=== PATIENT | male | born 1965 | race African-American/Black ===

== ENCOUNTER 2019-03-03 12:17 | Emergency (ER) | payer OTHER ==
[2019-03-03 12:25] VITALS: BMI 31.4
[2019-03-03] MEDS ORDERED: ACETAMINOPHEN 325 MG TABLET (FP) PO ONE (12:37)
[2019-03-03] MEDS ORDERED: IBUPROFEN 400 MG TABLET (FP) PO ONE ×2 (12:37→12:43)
--- NOTE | 2019-03-03 12:40 | PDOC ---
History of Present Illness - General Chief Complaint: Respiratory Stated Complaint: FEVER/ COLD CHILLS/HEADACHE Time Seen by Provider: 03/03/19 12:27 History Source: Patient Exam Limitations: No Limitations - History of Present Illness Is this a multiple visit Asthma Patient?: No Associated Symptoms: reports: cough, fever/chills, headache, muscle aches. denies: dizziness, earache, facial pain, lightheadedness, nasal congestion, nasal drainage, shortness of breath, sinus infection, sore throat, wheezing Past History - Travel Traveled outside of the country in the last 30 days: No Close contact w/someone who was outside of country & ill: No - Past Medical History Allergies/Adverse Reactions: Allergies Allergy/AdvReac Type Severity Reaction Status Date / Time No Known Allergies Allergy Verified 03/03/19 12:24 Home Medications: Ambulatory Orders NK [No Known Home Medication] 03/03/19 COPD: No - Immunization History Td Vaccination: No - Psycho Social/Smoking Cessation Hx Smoking Status: No Smoking History: Never smoked Number of Cigarettes Smoked Daily: 0 Review of Systems - Review of Systems Is the patient limited Salvadorean proficient: No Constitutional: Yes: Chills, Fever Respiratory: Yes: Cough. No: Shortness of Breath, Wheezing, Productive cough Cardiac (ROS): No: Chest Pain, Palpitations ABD/GI: No: Diarrhea, Nausea, Vomiting : Yes: Dysuria Musculoskeletal: Yes: Muscle Pain. No: Back Pain, Gout, Joint Pain, Muscle Weakness, Neck Pain Neurological: Yes: Headache. No: Paresthesia, Tingling, Weakness, Dizziness *Physical Exam - Vital Signs Last Vital Signs Temp Pulse Resp BP Pulse Ox 101.7 F H 113 H 18 115/82 97 03/03/19 12:22 03/03/19 12:22 03/03/19 12:22 03/03/19 12:22 03/03/19 12:22 - Physical Exam General Appearance: Yes: Nourished HEENT: positive: EOMI, GRACIELA, TMs Normal, Pharynx Normal Respiratory/Chest: positive: Lungs Clear, Normal Breath Sounds Cardiovascular: positive: Regular Rhythm, Regular Rate, S1, S2 Gastrointestinal/Abdominal: positive: Normal Bowel Sounds Extremity: positive: Normal Capillary Refill, Normal Inspection Integumentary: positive: Normal Color Neurologic: positive: medical language specialist II-XII NML intact, Fully Oriented, Alert, Normal Mood/ Affect, Normal Response, Motor Strength 06/24 ED Treatment Course - LABORATORY CBC & Chemistry Diagram: 03/03/19 14:17 - RADIOLOGY Radiology Studies Ordered: Category Date Time Status CHEST PA & LAT [RAD] Stat Radiology 03/03/19 12:27 Taken Medical Decision Making - Medical Decision Making 03/03/19 12:40 54 years old male with no prior medical history presents with fever, chills, cough, body aches and headache since yesterday. Patient is febrile in the ED, ill-appearing. Rapid flu sent chest x-ray obtained Suspect influenza Rapid flu test was negative. Chest x-ray was negative as well. CBC --no white count. Patient was tolerating p.o. in the ED he felt better. Discharge - Discharge Information Problems reviewed: Yes Clinical Impression/Diagnosis: Viral syndrome Condition: Stable Disposition: HOME - Additional Discharge Information Prescription Drug Monitoring Program (I-STOP) results: I-STOP not reviewed - Follow up/Referral Referrals: ON STAFF,NOT [Primary Care Provider] - - Patient Discharge Instructions Patient Printed Discharge Instructions: DI for Viral Syndrome Additional Instructions: Strep test was negative. Your flu test was negative today. Your x-ray was also shows no infection in the lungs. Most likely have a viral syndrome. Please increase fluids and rest. Follow-up with your primary care doctor for further evaluation. Return to the emergency room if worsening symptoms occurs - Post Discharge Activity Work/Back to School Note: Back to Work
[2019-03-03] MEDS ORDERED: ACETAMINOPHEN 325 MG TABLET (FP) ONE (12:43)
[2019-03-03 14:17] VITALS: BP 122/97; PULSE 93
[2019-03-03 14:46] LABS: BASO % 1.1 % (0-2.0); HEMATOCRIT 43.4 % (35.4-49); HEMOGLOBIN 14.4 GM/dL (11.7-16.9); MCH 29.5 pg (25.7-33.7); MCHC 33.3 g/dl (32.0-35.9); MEAN CELL VOLUME 88.7 fl (80-96); MEAN PLT VOLUME 8.6 fl (7.5-11.1); MONO % 13.2 % (3.8-10.2); NEUT % 73.7 % (42.8-82.8); PLATELET COUNT 154 K/MM3 (134-434); RBC 4.89 M/mm3 (4.00-5.60); RDW 13.1 % (11.9-15.9); WHITE BLOOD COUNT 9.6 K/mm3 (4.0-10.0)
[2019-03-03 14:59] VITALS: TEMP 99.3
== END 2019-03-03 15:15 | disposition home or self-care (01) ==
LOC: JERFT 12:17
DX: B34.9 Viral infection, unspecified (principal)
CPT/HCPCS: 36415; 71046-TC-FY; 85025; 87070; 87804; 87880; 99282-25